=== PATIENT | male | born 1980 | race Caucasian/White ===

== ENCOUNTER 2020-04-22 16:38 | Observation (INO) | payer SELFPAY ==
[~2020-04-22] VITALS: Ht 172.7 cm; Wt 84.1 kg
--- NOTE | ~2020-04-22 | OP ---
PATIENT NAME: AMY LUONG MEDICAL RECORD: [id number] :82 LOCATION:[id number] ADMISSION DATE:04/22/20 SURGEON: CHAD PALMA MD DATE OF OPERATION: 04/23/2020 PREOPERATIVE DIAGNOSIS: Acute cholecystitis. POSTOPERATIVE DIAGNOSIS: Acute cholecystitis. PROCEDURE: Laparoscopic cholecystectomy. SURGEON: Chad Palma MD REPORT OF PROCEDURE: The patient's abdomen was prepped and draped in sterile fashion. A cutdown was made on the superior aspect of the umbilicus. The 0 Vicryls were placed in the fascia bilaterally and the fascia was incised with 15 blade. I then bluntly entered the peritoneal cavity and placed a 12 mm Taylor port. Under direct visualization, a 5 mm trocar was placed in the epigastrium and two more 5 mm trocars were placed in the right subcostal region. The gallbladder was grasped and elevated. There was diffuse acute inflammation with no signs of gangrene or perforation. We aspirated the gallbladder to reduce some of the tension on it to make it more easily graspable. We then dissected out the cystic artery and cystic duct. Once we had these structures visualized, we clipped them proximally and distally and ligated them in standard fashion. The gallbladder was taken off the liver bed using electrocautery and placed into an EndoCatch bag. The right upper quadrant was irrigated out with normal saline and any bleeding from the liver bed was treated with electrocautery. The ports and insufflation were then removed and the gallbladder was taken out through the umbilicus. The umbilical fascia was closed with interrupted 0 Vicryls times 6. The wounds were then irrigated out with normal saline, infused with 10 mL of 0.25% Marcaine with epinephrine. The skin incisions were all closed with subcutaneous 5-0 Monocryl and dressed appropriately. COMPLICATIONS: None. CONDITION: Stable. ANESTHESIA: General endotracheal and local. BLOOD LOSS: Minimal. NTS:[id number] Voice Confirmation ID: [id number] DOCUMENT ID: [id number] CHAD PALMA MD CC: [id number] DICTATION DATE: 04/23/20 1223 MICROFILM CLERK: 04/23/201928 DIS IN 04/23/20 [facility] [address] [place] [address]
[2020-04-22 18:02] LABS: HEMATOCRIT 41.9 % (42.0-54.0); HEMOGLOBIN 14.7 g/dL (13.5-17.5); MCH 30.8 pg (26.0-34.0); MCHC 35.1 g/dL (31.0-37.0); MCV 87.8 fL (80.0-100.0); PLATELET COUNT 226 10x3/uL (130-400); RBC 4.77 10x6/uL (4.20-6.10); RDW 12.1 % (11.5-14.5); WBC 5.9 10x3/uL (4.8-10.8)
[2020-04-22 18:17] LABS: CALC OSMOLALITY 264 mosm/kg (275-300); CALCIUM 9.6 mg/dL (8.5-10.1); CHLORIDE - SERUM 97 mmol/L (98-107); GLUCOSE 117 mg/dL (74-106); POTASSIUM - SERUM 3.9 mmol/L (3.5-5.1); SODIUM 133 mmol/L (136-145); UREA NITROGEN 7 mg/dL (7-18); eGFR NON AFRICAN AMERICAN 88 mL/min (90-120)
[2020-04-22 18:24] LABS: ALBUMIN 4.1 g/dL (3.4-5.0); ALKALINE PHOSPHATASE 81 U/L (30-120); ALT (SGPT) 33 U/L (10-68); AMYLASE - SERUM 46 U/L (25-115); BILIRUBIN - TOTAL 1.12 mg/dL (0.2-1.3); LIPASE 102 U/L (73-393); PROTEIN - SERUM 8.2 g/dL (6.4-8.2)
[2020-04-22 19:08] LABS: LYMPHOCYTES 40 % (15-50); MONOCYTES 33 % (2-11); NEUTROPHILS 17 % (40-80); PLATELET ESTIMATE NORMAL
[2020-04-23 02:03] LABS: BASOPHILS 0.2 % (0-2); EOSINOPHILS 0.2 % (0-7); HEMATOCRIT 40.4 % (42.0-54.0); HEMOGLOBIN 13.8 g/dL (13.5-17.5); IMMATURE GRANULOCYTES 0.2 % (0-5); LYMPHOCYTES 35.2 % (15-50); MCH 30.4 pg (26.0-34.0); MCHC 34.2 g/dL (31.0-37.0); MEAN PLATELET VOLUME 9.3 fL (7.4-10.4); MONOCYTES 30.8 % (2-11); NEUTROPHILS 33.4 % (40-80); PLATELET COUNT 226 10x3/uL (130-400); RBC 4.54 10x6/uL (4.20-6.10); RDW 12.3 % (11.5-14.5); WBC 4.9 10x3/uL (4.8-10.8)
[2020-04-23 02:15] VITALS: BP 111/63; BMI 27.4
[2020-04-23 02:28] LABS: ALBUMIN 3.7 g/dL (3.4-5.0); ALKALINE PHOSPHATASE 87 U/L (30-120); BILIRUBIN - TOTAL 1.59 mg/dL (0.2-1.3); CARBON DIOXIDE 32.3 mmol/L (21.0-32.0); CHLORIDE - SERUM 101 mmol/L (98-107); CREATININE - SERUM 1.1 mg/dL (0.6-1.3); GLUCOSE 115 mg/dL (74-106); MAGNESIUM - SERUM 2.2 mg/dL (1.8-2.4); POTASSIUM - SERUM 3.9 mmol/L (3.5-5.1); PROTEIN - SERUM 7.3 g/dL (6.4-8.2); SODIUM 138 mmol/L (136-145); eGFR NON AFRICAN AMERICAN 79 mL/min (90-120)
[2020-04-23 02:36] LABS: ALT (SGPT) 92 U/L (10-68); CALC OSMOLALITY 275 mosm/kg (275-300); TROPONIN-I < 0.017 ng/mL (0.000-0.060); UREA NITROGEN 9 mg/dL (7-18)
--- NOTE | 2020-04-23 03:09 | NUR ---
RECEIVED IN REPORT TO [facility] ORDERED FOR PATIENT BECAUSE THEY ARE NOT STOCKED IN ER. ATTEMPTED TO PULL FROM THE SO AND MED SURG 1 PYXIS. BOTH STATED MED NOT AVAILABLE IN [facility] BUT THE VIAL AND SEPERATE PIGGY BACK WAS AVAILABLE. CALLED [employer] INTELLIGENCE OFFICER TO SEE IF SHE COULD OVER RIDE MEDICATION. RECEIVED INSTRUCTION TO CALL PHARMACY HOT LINE. 0105 CALLED AND SPOKE WITH WARPER FIXER. WAS INFORMED THEY WOULD BE CHANGING TO VIAL SO I COULD ADMINISTER THE MEDICATION. THE NEW ORDER WENT IN AND WAS SCHEDULED FOR 011. ONCE AGAIN ATTEMPTED TO PULL FROM PYXIS BUT MED NOT SHOWING AVAILABLE. WAITED FOR SEVERAL MINUTES FOR MED TO TRANSITION AND UPLOAD TO PYXIS. CALL BACK TO PHARMACY HOTLINE AND REPORTED PROBLEM. WAS INFORMED THAT IT WILL BE FIXED SO MEDICATION COULD BE ADMINISTERED. WAITED SEVERAL MINUTES WAITING FOR PROBLEM TO BE RESOLVED. MEDICATION STILL NOT UPLOADED BY 0250. CALLED [employer]TELL[employer] OFFICER TO INFORM AND ASK FOR HER TO PLEASE PULL MEDICATION BECAUSE PHARMACY HAS NOT RESOLVED PROBLEM AND PATIENT NEEDS MEDICATION SID. [employer]TELL[employer] OFFICER STATED SHE WOULD BE UP SHORTLY. MEDICATION NOW INFUSING AFTER [employer]TELLIGENCE OFFICER PULLED MEDICATION.
[2020-04-23 04:00] VITALS: BP 111/71
[2020-04-23 06:31] LABS: BILIRUBIN NEGATIVE (NEGATIVE); GLUCOSE NEGATIVE (NEGATIVE); KETONE NEGATIVE (NEGATIVE); NITRITE NEGATIVE (NEGATIVE); UROBILINOGEN NORMAL (NORMAL)
--- NOTE | 2020-04-23 07:15 | NUR ---
HE IS SLEEPY, BUT AROUSES TO MY VOICE. HE IS NPO FOR POSSIBLE SURGERY TODAY. THE CALL LIGHT IS WITHIN REACH. HE HAS HAD A SHOWER. HIS GIRLFRIEND IS AT THE BEDSIDE.
[2020-04-23 09:00] VITALS: Ht 172.7 cm; Wt 84.1 kg
[2020-04-23 09:07] VITALS: BP 119/72
[2020-04-23] MEDS ORDERED: HYDROCODON-ACE1 EA10 PO (12:13)
[2020-04-23 12:55] VITALS: BP 116/58
--- NOTE | 2020-04-23 12:55 | NUR ---
HE IS BACK FROM , SLEEPY. HE HAS 4 LAP SITES WITH [employer], CLEAN AND DRY AND INTACT. THE CALL LIGHT IS WITHIN REACH. DR. PALMA SAYS HE CAN D/C TODAY IF THE PATIENT WANTS TO GO HOME.
--- NOTE | 2020-04-23 18:23 | NUR ---
REMOVED HER IV. HIS LAP SITES ARE CLEAN, DRY AND INTACT. PAPERWORK GONE OVER WITH AND QUESTIONS ANSWERED. TAKEN DOWN STAIRS VIA WHEECHAIR.
== END 2020-04-23 18:28 | disposition home or self-care (01) ==
LOC: D.ER 16:38 → OBSVTIME 22:43 → D.MS 22:43
PROVIDERS: Family Medicine; ADMIT Family Medicine; ATTEND Family Medicine
DX: K81.0 Acute cholecystitis (principal); E87.1 Hypo-osmolality and hyponatremia; K21.9 Gastro-esophageal reflux disease without esophagitis